=== PATIENT | male | born 1970 | race Caucasian/White ===

== ENCOUNTER 2024-09-09 11:56 | Outpatient (REF) | payer MEDICARE, MEDICAID, SELFPAY ==
[2024-09-09 13:12] LABS: Erythrocyte Sedimentation Rate 1 MM/HR (0-15)
[2024-09-09 13:21] LABS: Vitamin B12 326 pg/mL (200-900)
[2024-09-10 14:47] LABS: Lyme Abs Screen <0.90 index
== END 2024-09-09 11:57 | disposition home or self-care (01) ==
LOC: HO.LAB 11:56
PROVIDERS: PCP Internal Medicine; Visit Provider Psychiatry & Neurology Neurology
DX: G93.49 Other encephalopathy (principal)
CPT/HCPCS: 36415; 82607; 85652; 86617; 86618